=== PATIENT | female | born 1960 | race Caucasian/White ===

== ENCOUNTER 2017-07-23 14:04 | Emergency (ER) | payer OTHER ==
[2016-06-12 11:43] VITALS: Ht 154.9 cm; Wt 45.4 kg
[~2017-07-23] VITALS: Ht 154.9 cm; Wt 45.4 kg
[~2017-07-23 14:04] MED LIST: ADVAIR INHALER IH; ALB6.7R INH; ALP5 PO; AZIT-1 PO; CHOL200022 PO; ESC10 PO; GAB300 PO; IBU800 PO; IBUP-1618 PO; LEV15R INH; MET800 PO; MIRT-17 PO; MULT1TAB64 PO; OMEG-23 PO; PER PO; PRED20TA6 PO; PRO25 PO; TIO18R INH; TRA50 PO; VENL75CA58 PO
[2017-07-23] MEDS ORDERED: TIO18R INH (14:11)
[2017-07-23] MEDS ORDERED: TIOT4MIS2 PO (14:11)
--- NOTE | 2017-07-23 14:11 | ER Report ---
History and Physical Time Seen By MD: 14:11 HPI/ROS CHIEF COMPLAINT: Right rib pain HISTORY OF PRESENT ILLNESS: This is a 56-year-old female who presents to the emergency department for right rib pain. Patient states that she has been sick with a cough for about 2 weeks and has developed some right sided rib pain. Patient states that over the last 3 days the pain has increased on the right side now she feels like something is sliding on the ribs and she feels like there is a popping sound coming from the right ribs. She also states that it's been harder for her to breathe and as such she's been using her oxygen more at night and has been more short of breath. She has had aches and chills but that is improving. Patient denies headaches, chest pain, rashes, abdominal pain or dysuria. REVIEW OF SYSTEMS: Constitutional: No fever, no chills. Eyes: No discharge. ENT: No sore throat. Cardiovascular: No chest pain, no palpitations. Respiratory: As above. Gastrointestinal: No abdominal pain, no vomiting. Genitourinary: No hematuria. Musculoskeletal: As above. Skin: No rashes. Neurological: No headache. Allergies: Coded Allergies: iodine (Unverified Allergy, Intermediate, HIVES,, 07/23/17) morphine (Unverified Allergy, Mild, ITCHING, 07/23/17) Uncoded Allergies: SEAFOOD (Allergy, Mild, 06/27/07) TAPE (Adverse Reaction, Mild, IRRITATES SKIN, 07/27/09) Home Meds Active Scripts Cyclobenzaprine Hcl (CYCLOBENZAPRINE HCL) 10 Mg Tablet, 5-10 MG PO TID Y for MUSCLE SPASMS, #9 TAB Prov:IRVIN ALMANZA [facility] 07/23/17 Benzonatate 100 Mg Cap (TESSALON PERLE 100 MG CAP) 100 Mg Capsule, 100 MG PO TID Y for COUGH, #15 CAP Prov:IRVIN ALMANZA [facility] 07/23/17 Hydrocodone Bit/Acetaminophen (HYDROCODON-ACETAMINOPHEN 5-325) 1 Each Tablet, 1 EACH PO Q4-6H Y for PAIN, #10 TAB Prov:IRVIN ALMANZA [facility] 07/23/17 Reported Medications Lisdexamfetamine Dimesylate (VYVANSE) 40 Mg Capsule, 40 MG PO QDAY, CAPSULE 07/23/17 Citalopram Hydrobromide (CITALOPRAM HBR) 20 Mg Tablet, 20 MG PO QDAY, #5 TAB 07/23/17 Tiotropium Leeper (Spiriva Respimat) 4 Gm Mist.inhal, 1 PUFF PO QDAY 07/23/17 Albuterol Sulfate (Proventil Hfa) 6.7 Gm Aer.w.adap, 1 PUFF INH PRN, 0 Refills 04/22/11 Discontinued Reported Medications Tiotropium Leeper (SPIRIVA) 18 Mcg/Cap Inh, 18 MCG INH, INH 07/23/17 Multivitamin (MULTI VITAMIN DAILY) 1 Each Tablet, 1 EACH PO QDAY 06/14/16 Cholecalciferol (Vitamin D3) (Vitamin D-3) 2,000 Unit Tablet, 1000 UNITS PO QDAY 06/14/16 Mirtazapine (REMERON) 15 Mg Tab.rapdis, 7.5-15 MG PO QHS TAKE ONE HALF TO ONE TABLET ABOUT AN HOUR BEFORE YOU INTEND TO GO TO SLEEP. 06/14/16 Gerlaw-3 Fatty Acids/Fish Oil (FISH OIL 1,000 MG SOFTGEL) 1 Each Capsule, 1 EACH PO QDAY, CAPSULE 06/14/16 Venlafaxine Hcl (EFFEXOR XR) 75 Mg Cap.er.24h, 75 MG PO QDAY 06/14/16 Past Medical/Surgical History Patient has a past medical and surgical history of post menopause, suicide attempt, depression, COPD, smokes 1 pack a day still, uses oxygen at night, migraines, hypertension, asthma, emphysema, arthritis, hysterectomy, , rotator cuff repair. Reviewed Nurses Notes: Yes Hx Smoking: Yes Smoking Status: Heavy Tobacco Smoker Exposure to Second Hand Smoke?: Yes Hx Substance Use Disorder: No Hx Alcohol Use: Yes Constitutional Vital Sign - Last 24 Hours 07/23/17 07/23/17 07/23/17 07/23/17 14:09 14:13 15:00 15:04 Temp 98.0 Pulse 89 82 Resp 14 B/P (MAP) 142/79 (100) 142/79 135/96 (109) Pulse Ox 91 85 O2 Delivery Room Air 2/12/18 2/12/18 2/12/18 2/12/18 15:30 15:34 16:00 16:05 Pulse 79 80 B/P (MAP) 123/88 (100) 117/81 (93) Pulse Ox 98 97 07/23/17 07/23/17 07/23/17 16:10 16:15 16:20 Pulse 80 76 77 B/P (MAP) 133/85 (101) Pulse Ox 99 98 98 Physical Exam General Appearance: The patient is alert, has no immediate need for airway protection and no signs of toxicity, guarding right ribs. Eyes: Pupils equal and round no pallor or injection. ENT, Mouth: Mucous membranes are moist. Respiratory: There are no retractions, Rhonchi to left lower base, expiratory wheezing in upper lobes. Slightly diminished in right lower lobe. Cardiovascular: Regular rate and rhythm, no murmurs, clicks or rubs. Gastrointestinal: Abdomen is soft and non tender, no masses, bowel sounds normal. Neurological: Alert and oriented 4. Moving all activities. Following all commands. No focal neuro deficits. Skin: Warm and dry, no rashes. Musculoskeletal: Neck is supple non tender. Pain to right ribs along the costal margin. Extremities are nontender, nonswollen and have full range of motion. DIFFERENTIAL DIAGNOSIS: After history and physical exam differential diagnosis was considered for contusion, rib fracture, rib dislocation, pneumothorax, bronchitis, pneumonia. Medical Decision Making EKG/Imaging Imaging Location[place] [facility] [place] Patient: Brunilda Guardado : 1960 Visit/Account:[id number] Date of : 07/23/2017 RIBS RIGHT INDICATION: Right rib pain for 2 weeks.. COMPARISON: None Available. FINDINGS: 2 views of right ribs. BB boyer the area of concern in lower ribs. No indication of discrete or displaced rib fractures. No bony lesions. The remaining bony and soft tissues are unremarkable.. IMPRESSION: No acute osseous abnormality of the right ribs. Report Dictated By: Vinicius Can at 07/23/2017 3:07 PM Report E-Signed By: Vinicius Can at 07/23/2017 3:09 PM WSN:[id number] [place] [facility] [place] Patient: Brunilda Guardado : 1960 Visit/Account:[id number] Date of : 07/23/2017 RIBS RIGHT INDICATION: Right rib pain for 2 weeks.. COMPARISON: None Available. FINDINGS: 2 views of right ribs. BB boyer the area of concern in lower ribs. No indication of discrete or displaced rib fractures. No bony lesions. The remaining bony and soft tissues are unremarkable.. IMPRESSION: No acute osseous abnormality of the right ribs. Report Dictated By: Vinicius Can at 07/23/2017 3:07 PM Report E-Signed By: Vinicius Can at 07/23/2017 3:09 PM WSN:[id number] ED Course/Re-evaluation ED Course The patient was admitted room. A history of physical were obtained. Differential diagnoses were considered. A two-view chest x-ray and right rib x- ray were negative for any acute abnormalities. He did review these results with the patient's and I did tell her that she likely has some muscle strain related to the coughing and will treat her muscular pain and rib pain with some Cyclobenzaprine as well as [place] and have her follow-up with her primary care provider this week for reevaluation. Patient was also encouraged to return to the emergency department for any other concerns or worsening symptoms. The patient was okay with this plan of care. Decision to Disposition Date: Jul 23, 2017 Decision to Disposition Time: 16:09 Depart Departure Latest Vital Signs Vital Signs Date Time Temp Pulse Resp B/P (MAP) Pulse Ox O2 Delivery O2 Flow Rate FiO2 07/23/17 16:20 77 133/85 (101) 98 07/23/17 14:13 98.0 14 Room Air Impression: Primary Impression: Rib pain on right side Additional Impressions: Cough COPD (chronic obstructive pulmonary disease) Condition: Improved Disposition: HOME OR SELF-CARE Referrals: SRINI SOTO Cyclobenzaprine Hcl (CYCLOBENZAPRINE HCL) 10 Mg Tablet 5-10 MG PO TID Y for MUSCLE SPASMS, #9 TAB Prov: IRVIN ALMANZA [employer] 07/23/17 Benzonatate 100 Mg Cap (TESSALON PERLE 100 MG CAP) 100 Mg Capsule 100 MG PO TID Y for COUGH, #15 CAP Prov: IRVIN ALMANZA [employer] 07/23/17 Hydrocodone Bit/Acetaminophen (HYDROCODON-ACETAMINOPHEN 5-325) 1 Each Tablet 1 EACH PO Q4-6H Y for PAIN, #10 TAB Prov: IRVIN ALMANZA 07/23/17 Patient Instructions: Acute Cough (ED), Chronic Cough (ED), How to Stop Smoking (ED), Rib Contusion (ED) Additional Instructions: Drink plenty of water. Get plenty of rest. Be sure to splint your ribs for comfort. Take the prescribed medications as directed. Follow up with Dr. Soto in 3-5 days. May return to the ED for worsening symptoms. Problem Qualifiers Additional Impressions: COPD (chronic obstructive pulmonary disease) COPD type: unspecified COPD Qualified Codes: J44.9 - Chronic obstructive pulmonary disease, unspecified IRVIN ALMANZA Jul 23, 2017 14:11
[2017-07-23] MEDS ORDERED: CITA-139 PO (14:12)
[2017-07-23] MEDS ORDERED: LISD40PT PO (14:13)
--- NOTE | 2017-07-23 15:11 | RADIOLOGY IMAGING REPORT ---
FACILITY: [facility] - [place] PATIENT NAME: Brunilda Guardado : 1960 MR: [id number] V: [id number] EXAM DATE: ORDERING PHYSICIAN: IRVIN ALMANZA TECHNOLOGIST: Location: [facility] Patient: Brunilda Guardado : 1960 Visit/Account:[id number] Date of Sevice: 07/23/2017 2 VIEWS CHEST INDICATION: Cough and shortness of breath. Right rib pain. COMPARISON: 04/26/2016. FINDINGS: Cardiomediastinal silhouette and pulmonary vessels within normal limits. There is continued hyperexpansion the lungs without focal consolidation. There is no pneumothorax or pleural effusion. Mild stable postinflammatory changes in the apices. No discrete nodule. Upper abdomen is unremarkable. No acute bony abnormality. IMPRESSION: 1. Stable chest without acute cardiopulmonary disease. Report Dictated By: Vinicius Can at 07/23/2017 3:04 PM Report E-Signed By: Vinicius Can at 07/23/2017 3:07 PM WSN:[id number]
--- NOTE | 2017-07-23 15:12 | RADIOLOGY IMAGING REPORT ---
FACILITY: [facility] - [place] PATIENT NAME: Brunilda Guardado : 1960 MR: [id number] V: [id number] EXAM DATE: ORDERING PHYSICIAN: IRVIN ALMANZA TECHNOLOGIST: Location: [facility] Patient: Brunilda Guardado : 1960 Visit/Account:[id number] Date of Sevice: 07/23/2017 RIBS RIGHT INDICATION: Right rib pain for 2 weeks.. COMPARISON: None Available. FINDINGS: 2 views of right ribs. BB boyer the area of concern in lower ribs. No indication of discret e or displaced rib fractures. No bony lesions. The remaining bony and soft tissues are unremarkable.. IMPRESSION: No acute osseous abnormality of the right ribs. Report Dictated By: Vinicius Can at 07/23/2017 3:07 PM Report E-Signed By: Vinicius Can at 07/23/2017 3:09 PM WSN:[id number]
[2017-07-23] MEDS ORDERED: CYCL10TA29 PO (16:13)
[2017-07-23] MEDS ORDERED: HYDR-385 PO (16:13)
[2017-07-23] MEDS ORDERED: BENZ100C4 PO (16:13)
[2017-07-23 16:20] VITALS: BP 133/85
== END 2017-07-23 16:21 | disposition home or self-care (01) ==
LOC: ER 14:13
DX: R07.81 Pleurodynia (principal); J44.9 Chronic obstructive pulmonary disease, unspecified
CPT/HCPCS: 71046; 71100; 99283

== ENCOUNTER 2018-05-05 17:50 | Emergency (ER) | payer OTHER ==
[2016-06-12 11:43] VITALS: BMI 16.5
[~2018-05-05 17:50] MED LIST changes: +BENZ100C4 PO; -CHOL200022 PO; +CHOL200085 PO; +CITA-145 PO; +CYCL10TA29 PO; +HYDR-385 PO; +LISD40PT PO; +TIOT4MIS2 PO
--- NOTE | 2018-05-05 18:02 | ER Report ---
History and Physical Time Seen By MD: 18:02 HPI/ROS CHIEF COMPLAINT: Difficulty breathing HISTORY OF PRESENT ILLNESS: 57-year-old female presents ambulatory to the ER complaining of severe difficulty breathing for the last 24 hours. She has a history of COPD is O2 dependent at home. She notes productive cough of colored sputum with low-grade fevers. She is having severe congestion in her lungs and chest. She has rhonchorous respirations. Patient denies chest pain or leg swelling. REVIEW OF SYSTEMS: Respiratory: As above Cardiovascular: No chest pain, no palpitations. Gastrointestinal: No vomiting, no abdominal pain. Musculoskeletal: No back pain. Allergies: Coded Allergies: iodine (Unverified Allergy, Intermediate, HIVES,, 07/23/17) morphine (Unverified Allergy, Mild, ITCHING, 07/23/17) Uncoded Allergies: SEAFOOD (Allergy, Mild, 06/27/07) TAPE (Adverse Reaction, Mild, IRRITATES SKIN, 07/27/09) Home Meds Active Scripts Prednisone (PREDNISONE) 20 Mg Tablet, 40 MG PO QDAY for reduce lung inflammation for 7 Days Prov:JANEL STACK DO 05/05/18 Albuterol Sulfate 0.083% (ALBUTEROL SULFATE 0.083%) 2.5 Mg/3 Ml Vial.neb, 2.5 MG INH QID PRN for difficulty breathing, #25 INH Prov:JANEL STACK DO 05/05/18 Levofloxacin 500 Mg Tab (LEVAQUIN 500 MG TAB) 500 Mg Tablet, 500 MG PO DAILY for infection, #6 TAB Prov:JANEL STACK DO 05/05/18 Cyclobenzaprine Hcl (CYCLOBENZAPRINE HCL) 10 Mg Tablet, 5-10 MG PO TID PRN for MUSCLE SPASMS, #9 TAB Prov:IRVIN ALMANZA PUBLIC OPINION SURVEY TAKER-BC 07/23/17 Benzonatate 100 Mg Cap (TESSALON PERLE 100 MG CAP) 100 Mg Capsule, 100 MG PO TID PRN for COUGH, #15 CAP Prov:IRVIN ALMANZA PUBLIC OPINION SURVEY TAKER-BC 07/23/17 Hydrocodone Bit/Acetaminophen (HYDROCODON-ACETAMINOPHEN 5-325) 1 Each Tablet, 1 EACH PO Q4-6H PRN for PAIN, #10 TAB Prov:IRVIN ALMANZA PUBLIC OPINION SURVEY TAKER-BC 07/23/17 Reported Medications Lisdexamfetamine Dimesylate (VYVANSE) 40 Mg Capsule, 40 MG PO QDAY, CAPSULE 07/23/17 Citalopram Hydrobromide (CITALOPRAM HBR) 20 Mg Tablet, 20 MG PO QDAY, #5 TAB 07/23/17 Tiotropium [place] 2.5 MCG/ACT (Spiriva Respimat 2.5 MCG/ACT) 4 Gm Mist.inhal, 1 PUFF PO QDAY 07/23/17 Albuterol Sulfate (Proventil Hfa) 6.7 Gm Aer.w.adap, 1 PUFF INH PRN, 0 Refills 04/22/11 Past Medical/Surgical History Patient has a past medical and surgical history of post menopause, suicide attempt, depression, COPD, smokes 1 pack a day still, uses oxygen at night, migraines, hypertension, asthma, emphysema, arthritis, hysterectomy, , rotator cuff repair. Reviewed Nurses Notes: Yes Old Medical Records Reviewed: Yes Hx Smoking: Yes Smoking Status: Heavy Tobacco Smoker Exposure to Second Hand Smoke?: Yes Hx Substance Use Disorder: No Hx Alcohol Use: Yes Constitutional Vital Sign - Last 24 Hours 05/05/18 05/05/18 05/05/18 05/05/18 18:00 18:00 18:00 18:05 Temp 99.0 Pulse 118 ??? Resp 24 B/P (MAP) 127/71 (89) 127/68 Pulse Ox 80 100 O2 Delivery Room Air O2 Flow Rate 15.0 05/05/18 05/05/18 05/05/18 05/05/18 18:20 18:29 18:30 19:07 Pulse 124 127 134 Resp 38 26 B/P (MAP) 126/119 (121) Pulse Ox 99 05/05/18 05/05/18 05/05/18 05/05/18 19:20 19:30 19:35 19:40 Pulse 137 137 136 Resp 30 40 B/P (MAP) 103/58 (73) Pulse Ox 95 94 94 05/05/18 05/05/18 05/05/18 05/05/18 19:55 20:00 20:10 20:25 Pulse ??? 126 121 Resp 40 19 B/P (MAP) 97/58 (71) Pulse Ox 95 91 11/25/18 05/05/18 05/05/18 05/05/18 20:30 20:43 20:48 21:00 Pulse 112 Resp 28 B/P (MAP) 90/67 (75) 93/68 (76) 93/60 (71) Pulse Ox 89 05/05/18 05/05/18 05/05/18 05/05/18 21:03 21:18 21:30 21:33 Pulse 109 104 103 Resp 24 28 23 B/P (MAP) 90/55 (67) Pulse Ox 91 91 93 Physical Exam Hypoxic on room air in the low 80s, vital signs stable, tachypneic him, afebrile General Appearance: The patient is alert, has no immediate need for airway protection and no current signs of toxicity. Moderate respiratory distress with air hunger and increased work of breathing HEENT: Pupils equal and round no injection. TMs normal, oropharynx without redness or exudate, mucous. Membranes are moist Respiratory: Chest is non tender, decreased lung sounds throughout, faint expiratory wheezing and rhonchi in the right lung field Cardiac: regular rate and rhythm Gastrointestinal: Abdomen is soft and non tender, no masses, bowel sounds normal. Musculoskeletal: Neck: Neck is supple and non tender. No lymphadenopathy Extremities have full range of motion and are non tender. No edema, no calf tenderness Skin: No rashes or lesions. [ ] DIFFERENTIAL DIAGNOSIS: After history and physical exam differential diagnosis was considered for shortness of breath including but not limited to pulmonary infectious process, COPD, asthma, pulmonary embolus and congestive heart failure. Medical Decision Making Data Points Result Diagram: 05/05/187 05/05/187 Laboratory Hematology Test 05/05/18 18:37 Red Blood Count 4.33 M/uL (4.17-5.56) Mean Corpuscular Volume 100.6 fL (80.0-96.0) Mean Corpuscular Hemoglobin 34.4 pg (26.0-33.0) Mean Corpuscular Hemoglobin Concent 34.2 g/dL (32.0-36.0) Red Cell Distribution Width 12.9 % (11.5-14.5) Mean Platelet Volume 8.6 fL (7.2-11.1) Neutrophils (%) (Auto) % (39.4-72.5) Lymphocytes (%) (Auto) % (17.6-49.6) Monocytes (%) (Auto) % (4.1-12.4) Eosinophils (%) (Auto) % (0.4-6.7) Basophils (%) (Auto) % (0.3-1.4) Nucleated RBC Relative Count (auto) /100WBC Neutrophils # (Auto) K/uL (2.0-7.4) Lymphocytes # (Auto) K/uL (1.3-3.6) Monocytes # (Auto) K/uL (0.3-1.0) Eosinophils # (Auto) K/uL (0.0-0.5) Basophils # (Auto) K/uL (0.0-0.1) Nucleated RBC Absolute Count (auto) K/uL Neutrophils % (Manual) 77 % (39.4-72.5) Band Neutrophils % 8 % Lymphocytes % (Manual) 3 % (17.6-49.6) Atypical Lymphocytes % 1 % Monocytes % (Manual) 9 % (4.1-12.4) Eosinophils % (Manual) 0 % (0.4-6.7) Basophils % (Manual) 0 % (0.3-1.4) Metamyelocytes % 2 % Peripheral Blood Smear Yes Y/N D-Dimer Quantitative (PE/DVT) 0.76 ug/ml (0-0.50) Sodium Level 132 mmol/L (137-145) Potassium Level 4.0 mmol/L (3.5-5.0) Chloride Level 98 mmol/L (98-107) Carbon Dioxide Level 27 mmol/L (22-31) Blood Urea Nitrogen 13 mg/dl (7-18) Creatinine 0.80 mg/dl (0.52-1.04) Glomerular Filtration Rate Calc > 60.0 Random Glucose 101 mg/dl (75-110) Lactate 2.0 mmol/L (0.7-2.1) Calcium Level 9.5 mg/dl (8.4-10.2) Total Bilirubin 0.9 mg/dl (0.2-1.3) Aspartate Amino Transf (AST/SGOT) 28 U/L (0-35) Alanine Aminotransferase (ALT/SGPT) 26 U/L (0-56) Alkaline Phosphatase 69 U/L (0-126) Troponin I < 0.012 ng/ml B-Type Natriuretic Peptide 65 pg/ml (0-100) Total Protein 6.7 g/dl (6.3-8.2) Albumin 3.4 g/dl (3.5-5.0) Chemistry Test 05/05/18 18:37 White Blood Count 17.8 k/uL (4.5-11.0) Red Blood Count 4.33 M/uL (4.17-5.56) Hemoglobin 14.9 g/dL (12.0-16.0) Hematocrit 43.5 % (34.0-47.0) Mean Corpuscular Volume 100.6 fL (80.0-96.0) Mean Corpuscular Hemoglobin 34.4 pg (26.0-33.0) Mean Corpuscular Hemoglobin Concent 34.2 g/dL (32.0-36.0) Red Cell Distribution Width 12.9 % (11.5-14.5) Platelet Count 161 K/uL (150-450) Mean Platelet Volume 8.6 fL (7.2-11.1) Neutrophils (%) (Auto) % (39.4-72.5) Lymphocytes (%) (Auto) % (17.6-49.6) Monocytes (%) (Auto) % (4.1-12.4) Eosinophils (%) (Auto) % (0.4-6.7) Basophils (%) (Auto) % (0.3-1.4) Nucleated RBC Relative Count (auto) /100WBC Neutrophils # (Auto) K/uL (2.0-7.4) Lymphocytes # (Auto) K/uL (1.3-3.6) Monocytes # (Auto) K/uL (0.3-1.0) Eosinophils # (Auto) K/uL (0.0-0.5) Basophils # (Auto) K/uL (0.0-0.1) Nucleated RBC Absolute Count (auto) K/uL Neutrophils % (Manual) 77 % (39.4-72.5) Band Neutrophils % 8 % Lymphocytes % (Manual) 3 % (17.6-49.6) Atypical Lymphocytes % 1 % Monocytes % (Manual) 9 % (4.1-12.4) Eosinophils % (Manual) 0 % (0.4-6.7) Basophils % (Manual) 0 % (0.3-1.4) Metamyelocytes % 2 % Peripheral Blood Smear Yes Y/N D-Dimer Quantitative (PE/DVT) 0.76 ug/ml (0-0.50) Glomerular Filtration Rate Calc > 60.0 Lactate 2.0 mmol/L (0.7-2.1) Calcium Level 9.5 mg/dl (8.4-10.2) Total Bilirubin 0.9 mg/dl (0.2-1.3) Aspartate Amino Transf (AST/SGOT) 28 U/L (0-35) Alanine Aminotransferase (ALT/SGPT) 26 U/L (0-56) Alkaline Phosphatase 69 U/L (0-126) Troponin I < 0.012 ng/ml B-Type Natriuretic Peptide 65 pg/ml (0-100) Total Protein 6.7 g/dl (6.3-8.2) Albumin 3.4 g/dl (3.5-5.0) Coagulation Test 05/05/18 18:37 D-Dimer Quantitative (PE/DVT) 0.76 ug/ml EKG/Imaging EKG Interpretation 12 lead EK Rhythm: Sinus tachycardia, rate 123 bpm [place]: normal QRS: Pulmonary disease pattern noted biatrial enlargement, left anterior fascicular block noted ST segments: Diffuse nonspecific ST and T-wave abnormalities Imaging Results: CT scan of the CTA pulmonary angiogram was obtained. The results of the study are CT angiogram chest with contrast Indication: Cough and dyspnea. Comparison: None available. Technique: Axial CT images are obtained through the chest after administration of 75 mL Isovue 370 IV contrast. Reformatted coronal and sagittal images were reviewed as well as coronal MIP images. One of the following dose optimization techniques was utilized in the performance of this exam: automated exposure control; adjustment of the mA and/or kV according to the patient's size; or use of an iterative reconstruction technique. Specific details can be referenced in the facility's radiology CT exam operational policy. FINDINGS: No evidence of filling defect within the pulmonary vasculature to suggest pulmonary embolus. Heart is normal size without pericardial effusion. Aorta shows no aneurysm or dissection. Right hilar region does show prominent lymph node measuring 1.6 x 1.3 cm. Couple small lymph nodes in the mediastinum. No abnormal density seen mediastinum. Early consolidation seen in the inferior lateral right upper lobe. Lungs show no other consolidations, pleural effusion or pneumothorax. Mild emphysematous changes. There is a pleural-based 4 x 3 mm nodule seen in the right lower lobe on image #68 of series 14. The left lower lobe does show a pleural-based 6 x 4 mm nodule on image #80. No other discrete nodules. No other focal osseous opacities. Airways are clear. Bony structures show no acute fractures or discrete lesions. Chest wall shows no enlarged axillary lymph nodes or masses. Minimal intrahepatic biliary dilatation is partially imaged. No other focal liver abnormality. Prominent left adrenal gland measuring 2.1 x 1.3 cm. The remaining upper abdomen is unremarkable IMPRESSION: 1. No evidence of pulmonary embolus. 2. Early consolidation/pneumonia of the inferior lateral right upper lobe. Prominent right hilar lymph nodes likely reactive. 3. Bilateral lung nodule. Largest on left side measuring 6 mm. These are nonspecific and could be postinflammatory. However suggest follow-up per Fleischner guidelines described below. 4. Liver and left adrenal gland findings described above on the partially image d. Suggest a follow-up CT scan of the abdomen without and with contrast for reevaluation. FLEISCHNER SOCIETY FOLLOW-UP GUIDELINES FOR NEWLY DETECTED INCIDENTAL NODULES IN PERSONS 35 YEARS OF AGE OR OLDER. *THESE RECOMMENDATIONS DO NOT APPLY TO LUNG CANCER SCREENING, PATIENTS WITH IMMUNOSUPPRESSION , OR PATIENTS WITH KNOWN PRIMARY MALIGNANCY. MULTIPLE SOLID NODULES If largest nodule size is less than 6 mm: Low risk patient - no follow up needed High risk patient - Optional CT at 12 months. If largest nodule size is 6-8 mm: Low risk patient - follow up CT at 3-6 months, then consider CT at 18-24 months if no change. High risk patient - follow up CT at 3-6 months, then CT at 18-24 months if no change. If largest nodule size is greater than 8 mm: Low risk patient - follow up CT at 3-6 months, then consider CT at 18-24 months High risk patient - follow up CT at 3-6 months, then at 18-24 months LOW RISK PATIENT: Minimal or absent history of tobacco use and of other known risk factors. HIGH RISK PATIENT: Tobacco use, family history of lung cancer, upper pulmonary lobe location of nodule, presence of emphysema, pulmonary fibrosis, older age. The study was read by the radiologist. I viewed the images myself on the PACS system. ED Course/Re-evaluation Clinical Indication for ER IV: Hydration, IV Access ED Course Patient was admitted to an examination room. H&P was done. The differential diagnosis was considered. On clinical examination. Patient has gross hypoxemia. She is on oxygen. She is requiring O2 [id number]. She wears O2 only at night. 2 L. She does have COPD. She's had a cough and fever for 2 days. Patient's diagnostic evaluation shows an elevated white blood cell count with a left shift. Her lungs are rhonchorous and wheezing. She responds to an hour-long nebulizer treatment with 10 mg of albuterol and ipratropium. She's given some Medrol 125 mg IV. Her d-dimer is elevated. Her chest x-rays canceled. A CTA pulmonary angiogram is performed which shows no evidence of pulmonary embolism but significant consolidation of the right middle lobe consistent with pneumonia. Patient was offered admission for treatment of her pneumonia, but she doesn't really like to go home. She is very resistant to being admitted. Her oxygenation is improved. She's only requiring 2 L for her saturations to be maintained in the normal range. Patient's given Rocephin 2 g IV and Levaquin 500 mg by mouth. She's discharged on Levaquin and prednisone 40 mg per day. She is advised to follow-up with her primary care if unimproved in 2-3 days. She is cautioned of a low threshold return to the ER for any worsening. Patient was given a copy of her CT purported advised to follow-up with her primary care physician for further evaluation of her pulmonary nodules. Decision to Disposition Date: May 05, 2018 Decision to Disposition Time: 18:46 Depart Departure Latest Vital Signs Vital Signs Date Time Temp Pulse Resp B/P (MAP) Pulse Ox O2 Delivery O2 Flow Rate FiO2 05/05/18 21:33 103 23 93 05/05/18 21:30 90/55 (67) 05/05/18 18:00 99.0 Room Air 05/05/18 18:00 15.0 Impression: Primary Impression: Right upper lobe pneumonia Additional Impressions: COPD exacerbation Incidental pulmonary nodule Condition: Improved Disposition: HOME OR SELF-CARE Referrals: SRINI SOTO DO (PCP) New Scripts Prednisone (PREDNISONE) 20 Mg Tablet 40 MG PO QDAY for reduce lung inflammation for 7 Days Prov: JANEL STACK DO 05/05/18 Albuterol Sulfate 0.083% (ALBUTEROL SULFATE 0.083%) 2.5 Mg/3 Ml Vial.neb 2.5 MG INH QID PRN for difficulty breathing, #25 INH Prov: JANEL STACK DO 05/05/18 Levofloxacin 500 Mg Tab (LEVAQUIN 500 MG TAB) 500 Mg Tablet 500 MG PO DAILY for infection, #6 TAB Prov: JANEL STACK DO 05/05/18 Patient Instructions: Bacterial Pneumonia (ED), COPD (Chronic Obstructive Pulmonary Disease) (ED) Additional Instructions: Take medications as prescribed Follow-up with primary care if unimproved in 3-5 days Return to the ER for any worsening Problem Qualifiers Primary Impression: Right upper lobe pneumonia Pneumonia type: due to unspecified organism Qualified Codes: J18.1 - Lobar pneumonia, unspecified organism JANEL STACK DO May 05, 2018 18:02
[2018-05-05] MEDS ORDERED: ALBUTEROL/IPRATROPIUM 3 ML NEB NEB ONE ×2 (18:20→21:10)
[2018-05-05] MEDS ORDERED: methylPREDNIS SUCC 125 MG/2ML IVP ONE (18:20)
[2018-05-05] MEDS: ALBUTEROL 2.5 MG/3 ML NEB NEB SCH ×2 (18:27→18:28)
--- NOTE | 2018-05-05 18:32 | EKG ---
FACILITY: [facility] PATIENT NAME: PAWEL CRUMP : [id number] MR: [id number] V: [id number] EXAM DATE: ORDERING PHYSICIAN: JANEL STACK TECHNOLOGIST: CORTEZ Test Reason : CP Blood Pressure : / mmHG Vent. Rate : 123 BPM Atrial Rate : 123 BPM P-R Int : 112 ms QRS Dur : 074 ms QT Int : 282 ms P-R-T Axes : 080 -45 055 degrees QTc Int : 403 ms Sinus tachycardia Biatrial enlargement Pulmonary disease pattern Poor R wave progression anteriorly Diffuse artifact - repeat if needed Abnormal ECG No previous ECGs available Confirmed by STEVO RIVERA ([id number]) on 05/06/2018 6:18:07 AM Referred By: SEDA Confirmed By:STEVO RIVERA
[2018-05-05 18:50] LABS: PLATELET COUNT, AUTOMATED 161 K/uL (150-450)
[2018-05-05] MEDS ORDERED: NS(*) 0.9% 1000 ML BAG 1,000 ML IV ONE (18:50)
[2018-05-05] MEDS ORDERED: fentaNYL CITR 100 MCG/2 ML AMP IVP ONE (19:15)
[2018-05-05] MEDS ORDERED: ONDANSETRON 4 MG/2 ML VIAL IVP ONE (19:15)
[2018-05-05] MEDS ORDERED: IOPAMIDOL 76% 75 ML INFUS BTL 75 ML ONE (19:40)
[2018-05-05] MEDS ORDERED: NS(*) 0.9% 50 ML BAG 50 ML ONE (19:41)
--- NOTE | 2018-05-05 20:54 | RADIOLOGY IMAGING REPORT ---
FACILITY: [facility] [place] PATIENT NAME: Brunilda Guardado : 1960 MR: [id number] V: [id number] EXAM DATE: ORDERING PHYSICIAN: JANEL STACK TECHNOLOGIST: Location: [facility] [place] Patient: Brunilda Guardado : 1960 Visit/Account:[id number] Date of Sevice: 05/05/2018 CT angiogram chest with contrast Indication: Cough and dyspnea. Comparison: None available. Technique: Axial CT images are obtained through the chest after administration of 75 mL Isovue 370 IV contrast. Reformatted coronal and sagittal images were reviewed as well as coronal MIP images. One of the following dose optimization techniques was utilized in the performance of this exam: auto mated exposure control; adjustment of the mA and/or kV according to the patient's size; or use of an iterative reconstruction technique. Specific details can be referenced in the facility's radiology C T exam operational policy. FINDINGS: No evidence of filling defect within the pulmonary vasculature to suggest pulmonary embolus. Heart is normal size without pericardial effusion. Aorta shows no aneurysm or dissection. Right hilar region does show prominent lymph node measuring 1.6 x 1.3 cm. Couple small lymph nodes in the medias tinum. No abnormal density seen mediastinum. Early consolidation seen in the inferior lateral right upper lobe. Lungs show no other consolidations , pleural effusion or pneumothorax. Mild emphysematous changes. There is a pleural-based 4 x 3 mm nod ule seen in the right lower lobe on image #68 of series 14. The left lower lobe does show a pleural-b ased 6 x 4 mm nodule on image #80. No other discrete nodules. No other focal osseous opacities. Airwa ys are clear. Bony structures show no acute fractures or discrete lesions. Chest wall shows no enlarged axillary ly mph nodes or masses. Minimal intrahepatic biliary dilatation is partially imaged. No other focal liver abnormality. Promin ent left adrenal gland measuring 2.1 x 1.3 cm. The remaining upper abdomen is unremarkable IMPRESSION: 1. No evidence of pulmonary embolus. 2. Early consolidation/pneumonia of the inferior lateral right upper lobe. Prominent right hilar lym ph nodes likely reactive. 3. Bilateral lung nodule. Largest on left side measuring 6 mm. These are nonspecific and could be pos tinflammatory. However suggest follow-up per Fleischner guidelines described below. 4. Liver and left adrenal gland findings described above on the partially imaged. Suggest a follow-up CT scan of the abdomen without and with contrast for reevaluation. FLEISCHNER SOCIETY FOLLOW-UP GUIDELINES FOR NEWLY DETECTED INCIDENTAL NODULES IN PERSONS 35 YEARS OF AGE OR OLDER. *THESE RECOMMENDATIONS DO NOT APPLY TO LUNG CANCER SCREENING, PATIENTS WITH IMMUNOSUPPRESSION , OR PA TIENTS WITH KNOWN PRIMARY MALIGNANCY. MULTIPLE SOLID NODULES If largest nodule size is less than 6 mm: Low risk patient - no follow up needed High risk patient - Optional CT at 12 months. If largest nodule size is 6-8 mm: Low risk patient - follow up CT at 3-6 months, then consider CT at 18-24 months if no change. High risk patient - follow up CT at 3-6 months, then CT at 18-24 months if no change. If largest nodule size is greater than 8 mm: Low risk patient - follow up CT at 3-6 months, then consider CT at 18-24 months High risk patient - follow up CT at 3-6 months, then at 18-24 months LOW RISK PATIENT: Minimal or absent history of tobacco use and of other known risk factors. HIGH RISK PATIENT: Tobacco use, family history of lung cancer, upper pulmonary lobe location of nodul e, presence of emphysema, pulmonary fibrosis, older age. Mary Ellen H, Mark DP, Ramez LUO, et al. Guidelines for Management of Incidental Pulmonary Nodules Dete cted on CT Images: From the Fleischner Society 2017. Radiology. Report Dictated By: Vinicius Can at 05/05/2018 8:36 PM Report E-Signed By: Vinicius Can at 05/05/2018 8:50 PM WSN:[id number]
[2018-05-05] MEDS ORDERED: LEVOFLOXACIN 500 MG TAB PO ONE (21:00)
[2018-05-05] MEDS ORDERED: cefTRIAXone 2 GM VIAL IVP ONE (21:00)
[2018-05-05] MEDS ORDERED: ALBU2.5V36 INH (21:27)
[2018-05-05] MEDS ORDERED: LEVO-85 PO (21:27)
[2018-05-05] MEDS ORDERED: PRED20TA6 PO (21:28)
[2018-05-05 21:30] VITALS: BP 90/55
== END 2018-05-05 21:48 | disposition home or self-care (01) ==
LOC: ER 18:05
DX: J18.1 Lobar pneumonia, unspecified organism (principal); J44.1 Chronic obstructive pulmonary disease with (acute) exacerbation; R91.1 Solitary pulmonary nodule; Z99.81 Dependence on supplemental oxygen
CPT/HCPCS: 36415; 71275; 83605; 83880; 84484; 85025; 85379; 87040; 93005; 94644; 96374; 96375; 99284; J0696; J2405; J2930; J3010; J7030; J7050; J7613; J7620; Q9967; 82040; 82247; 82310; 82374; 82435; 82565; 82947; 84075; 84132; 84155; 84295; 84450; 84460; 84520

== ENCOUNTER 2018-06-19 07:41 | Emergency (ER) | payer OTHER ==
[2016-06-12 11:43] VITALS: Wt 40.8 kg
[~2018-06-19 07:41] MED LIST changes: -OXYGENHOME INH
[2018-06-19] MEDS ORDERED: OXYGENHOME INH (07:47)
[2018-06-19] MEDS ORDERED: ASPIRIN 81 MG CHEW PO ONE (07:55)
--- NOTE | 2018-06-19 07:56 | ER Report ---
History and Physical Time Seen By MD: 07:55 Hx. of Stated Complaint: CHEST PAIN - A FIB REPORTED BY EMS WITH NO HISTORY HPI/ROS CHIEF COMPLAINT: Chest pain HISTORY OF PRESENT ILLNESS: 57-year-old female comes emergency room complaining of chest pain. Patient states left-sided dull aching with occasional episodes of chest pressures mild associated shortness of breath. Patient is a baseline history of COPD secondary to smoking her entire life. Patient is still smoking. Patient also notes a weight loss of approximately 30 pounds in the last 3-4 months. 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 Patient also is a harsh productive cough she says of deep dark phlegm. Patient denies any fever chills nausea she has no exertional dyspnea and orthopnea no PND patient has no additional complaints this time REVIEW OF SYSTEMS: Respiratory: Cough with shortness of breath Cardiovascular: Chest pain or palpitation Gastrointestinal: No vomiting, no abdominal pain. Musculoskeletal: No back pain. Remainder of the 14 system rev: Yes Allergies: Coded Allergies: iodine (Unverified Allergy, Intermediate, HIVES,, 06/19/18) morphine (Unverified Allergy, Mild, ITCHING, 06/19/18) Uncoded Allergies: SEAFOOD (Allergy, Mild, 06/27/07) TAPE (Adverse Reaction, Mild, IRRITATES SKIN, 07/27/09) Home Meds Active Scripts Albuterol Sulfate 0.083% (ALBUTEROL SULFATE 0.083%) 2.5 Mg/3 Ml Vial.neb, 2.5 MG INH QID PRN for difficulty breathing, #25 INH Prov:JANEL STACK DO 05/05/18 Reported Medications Oxygen (OXYGEN) Inha, 2 L INH HS, L 06/19/18 Tiotropium [place] 2.5 MCG/ACT (Spiriva Respimat 2.5 MCG/ACT) 4 Gm Mist.inhal, 1 PUFF PO QDAY 07/23/17 Albuterol Sulfate (Proventil Hfa) 6.7 Gm Aer.w.adap, 1 PUFF INH PRN, 0 Refills 04/22/11 Discontinued Reported Medications Lisdexamfetamine Dimesylate (VYVANSE) 40 Mg Capsule, 40 MG PO QDAY, CAPSULE 07/23/17 Citalopram Hydrobromide (CITALOPRAM HBR) 20 Mg Tablet, 20 MG PO QDAY, #5 TAB 07/23/17 Discontinued Scripts Prednisone (PREDNISONE) 20 Mg Tablet, 40 MG PO QDAY for reduce lung inflammation for 7 Days Prov:JANEL STACK DO 05/05/18 Levofloxacin 500 Mg Tab (LEVAQUIN 500 MG TAB) 500 Mg Tablet, 500 MG PO DAILY for infection, #6 TAB Prov:JANEL STACK DO 05/05/18 Cyclobenzaprine Hcl (CYCLOBENZAPRINE HCL) 10 Mg Tablet, 5-10 MG PO TID PRN for MUSCLE SPASMS, #9 TAB Prov:IRVIN ALMANZA ACCOUNT RETENTION REPRESENTATIVE-BC 07/23/17 Benzonatate 100 Mg Cap (TESSALON PERLE 100 MG CAP) 100 Mg Capsule, 100 MG PO TID PRN for COUGH, #15 CAP Prov:IRVIN ALMANZA ACCOUNT RETENTION REPRESENTATIVE-BC 07/23/17 Hydrocodone Bit/Acetaminophen (HYDROCODON-ACETAMINOPHEN 5-325) 1 Each Tablet, 1 EACH PO Q4-6H PRN for PAIN, #10 TAB Prov:IRVIN ALMANZA ACCOUNT RETENTION REPRESENTATIVE-BC 07/23/17 Reviewed Nurses Notes: Yes Old Medical Records Reviewed: Yes Hx Smoking: Yes Smoking Status: Heavy Tobacco Smoker Exposure to Second Hand Smoke?: Yes Hx Substance Use Disorder: No Hx Alcohol Use: Yes Constitutional Vital Sign - Last 24 Hours 06/19/18 06/19/18 06/19/18 06/19/18 07:42 07:43 07:46 07:50 Pulse 92 Resp 20 B/P (MAP) 138/101 138/101 (113) 141/88 (105) Pulse Ox 98 O2 Delivery Nasal Cannula O2 Flow Rate 4.0 06/19/18 06/19/18 06/19/18 06/19/18 07:52 08:00 08:10 08:40 B/P (MAP) 128/85 (99) 145/89 (107) 141/77 (98) O2 Flow Rate 2.0 06/19/18 06/19/18 06/19/18 06/19/18 08:41 08:50 09:00 09:10 Pulse 97 Resp 11 B/P (MAP) 130/70 (90) 123/84 (97) 116/87 (97) Pulse Ox 98 06/19/18 06/19/18 06/19/18 06/19/18 09:11 09:14 09:20 09:30 Pulse 84 Resp 18 B/P (MAP) 103/92 (96) 104/86 (92) Pulse Ox 97 O2 Flow Rate 1.0 Physical Exam General Appearance: [The patient is alert, has no immediate need for airway protection and no current signs of toxicity.] [ ] Eyes: Pupils equal and round no injection. Respiratory: Chest is nontender to palpation she has some mild end expiratory wheezes on the left side greater than right with some coarse crackles at bases Cardiac: regular rate and rhythm [ ] Gastrointestinal: Abdomen is soft and non tender, no masses, bowel sounds normal. Musculoskeletal: Neck: Neck is supple and non tender. Extremities have full range of motion and are non tender. Skin: No rashes or lesions. [ ] DIFFERENTIAL DIAGNOSIS: After history and physical exam differential diagnosis was considered for myocardial infarction pulmonary embolus pneumonia bronchitis rib fractures pulmonary contusion pneumothorax Medical Decision Making Data Points Result Diagram: 06/19/18 0737 06/19/18 0737 Laboratory Hematology Test 06/19/18 07:37 06/19/18 08:15 06/19/18 08:18 Red Blood Count 4.62 M/uL (4.17-5.56) Mean Corpuscular Volume 100.4 fL (80.0-96.0) Mean Corpuscular Hemoglobin 34.1 pg (26.0-33.0) Mean Corpuscular Hemoglobin Concent 33.9 g/dL (32.0-36.0) Red Cell Distribution Width 13.3 % (11.5-14.5) Mean Platelet Volume 8.2 fL (7.2-11.1) Neutrophils (%) (Auto) 69.0 % (39.4-72.5) Lymphocytes (%) (Auto) 23.1 % (17.6-49.6) Monocytes (%) (Auto) 6.1 % (4.1-12.4) Eosinophils (%) (Auto) 1.0 % (0.4-6.7) Basophils (%) (Auto) 0.8 % (0.3-1.4) Nucleated RBC Relative Count (auto) 0.0 /100WBC Neutrophils # (Auto) 4.8 K/uL (2.0-7.4) Lymphocytes # (Auto) 1.6 K/uL (1.3-3.6) Monocytes # (Auto) 0.4 K/uL (0.3-1.0) Eosinophils # (Auto) 0.1 K/uL (0.0-0.5) Basophils # (Auto) 0.1 K/uL (0.0-0.1) Nucleated RBC Absolute Count (auto) 0.00 K/uL Sodium Level 140 mmol/L (137-145) Potassium Level 4.7 mmol/L (3.5-5.0) Chloride Level 104 mmol/L (98-107) Carbon Dioxide Level 28 mmol/L (22-31) Blood Urea Nitrogen 10 mg/dl (7-18) Creatinine 0.70 mg/dl (0.52-1.04) Glomerular Filtration Rate Calc > 60.0 Random Glucose 84 mg/dl (75-110) Calcium Level 9.6 mg/dl (8.4-10.2) Total Bilirubin 0.5 mg/dl (0.2-1.3) Aspartate Amino Transf (AST/SGOT) 32 U/L (0-35) Alanine Aminotransferase (ALT/SGPT) 27 U/L (0-56) Alkaline Phosphatase 74 U/L (0-126) Troponin I < 0.012 ng/ml B-Type Natriuretic Peptide 17 pg/ml (0-100) Total Protein 7.6 g/dl (6.3-8.2) Albumin 4.2 g/dl (3.5-5.0) Serum Alcohol < 10 mg/dl Lactate 1.6 mmol/L (0.7-2.1) Blood Gas Puncture Site Left radial Blood Gas Patient Temperature 98.6 DEGREES Arterial Blood pH 7.37 (7.35-7.45) Arterial Blood Partial Pressure CO2 44 mmHg (32-37) Arterial Blood Partial Pressure O2 84 mmHg (60-80) Arterial Blood HCO3 25 mmol/L (20-26) Arterial Blood Oxygen Saturation 96 % (92-100) Arterial Blood Base Excess 0.0 mmol/L Doni Test Acceptable Oxygen Liters/Minute 28% Chemistry Test 06/19/18 07:37 06/19/18 08:15 06/19/18 08:18 White Blood Count 7.0 k/uL (4.5-11.0) Red Blood Count 4.62 M/uL (4.17-5.56) Hemoglobin 15.7 g/dL (12.0-16.0) Hematocrit 46.3 % (34.0-47.0) Mean Corpuscular Volume 100.4 fL (80.0-96.0) Mean Corpuscular Hemoglobin 34.1 pg (26.0-33.0) Mean Corpuscular Hemoglobin Concent 33.9 g/dL (32.0-36.0) Red Cell Distribution Width 13.3 % (11.5-14.5) Platelet Count 244 K/uL (150-450) Mean Platelet Volume 8.2 fL (7.2-11.1) Neutrophils (%) (Auto) 69.0 % (39.4-72.5) Lymphocytes (%) (Auto) 23.1 % (17.6-49.6) Monocytes (%) (Auto) 6.1 % (4.1-12.4) Eosinophils (%) (Auto) 1.0 % (0.4-6.7) Basophils (%) (Auto) 0.8 % (0.3-1.4) Nucleated RBC Relative Count (auto) 0.0 /100WBC Neutrophils # (Auto) 4.8 K/uL (2.0-7.4) Lymphocytes # (Auto) 1.6 K/uL (1.3-3.6) Monocytes # (Auto) 0.4 K/uL (0.3-1.0) Eosinophils # (Auto) 0.1 K/uL (0.0-0.5) Basophils # (Auto) 0.1 K/uL (0.0-0.1) Nucleated RBC Absolute Count (auto) 0.00 K/uL Glomerular Filtration Rate Calc > 60.0 Calcium Level 9.6 mg/dl (8.4-10.2) Total Bilirubin 0.5 mg/dl (0.2-1.3) Aspartate Amino Transf (AST/SGOT) 32 U/L (0-35) Alanine Aminotransferase (ALT/SGPT) 27 U/L (0-56) Alkaline Phosphatase 74 U/L (0-126) Troponin I < 0.012 ng/ml B-Type Natriuretic Peptide 17 pg/ml (0-100) Total Protein 7.6 g/dl (6.3-8.2) Albumin 4.2 g/dl (3.5-5.0) Serum Alcohol < 10 mg/dl Lactate 1.6 mmol/L (0.7-2.1) Blood Gas Puncture Site Left radial Blood Gas Patient Temperature 98.6 DEGREES Arterial Blood pH 7.37 (7.35-7.45) Arterial Blood Partial Pressure CO2 44 mmHg (32-37) Arterial Blood Partial Pressure O2 84 mmHg (60-80) Arterial Blood HCO3 25 mmol/L (20-26) Arterial Blood Oxygen Saturation 96 % (92-100) Arterial Blood Base Excess 0.0 mmol/L Doni Test Acceptable Oxygen Liters/Minute 28% Toxicology Test 06/19/18 07:37 Serum Alcohol < 10 mg/dl ED Course/Re-evaluation ED Course Equal medical course medical decision making a 57-year-old female comes emergency Department today with reported left sided chest pleuritic chest discomfort after a fall 3 days prior to. Patient also states that she's had multiple does her family both of her sons are in detention and she is having significant anxiety as well. Basic workup was performed according cardiac ma mariers EKG chest x-ray all of which showed no acute or focal findings. She CT Ponce was performed due to risk factors for PE this was also normal she does have pulmonary nodules which is been stable for the past few imaging however this is concerning for possible early cancer this was discussed with the patient. Patient did receive some fluids and antianxiety she feels significantly better she has family at bedside her blood work including ABG showed nothing focal or acute no sign of infection etiology this most likely is anxiety component however I did advise her to follow-up with a primary care doc I recommended outpatient stress and echo smoking cessation and alcohol cessation and therapy for anxiety Decision to Disposition Date: Jun 19, 2018 Decision to Disposition Time: 10:01 Depart Departure Latest Vital Signs Vital Signs Date Time Temp Pulse Resp B/P (MAP) Pulse Ox O2 Delivery O2 Flow Rate FiO2 06/19/18 09:30 104/86 (92) 06/19/18 09:14 1.0 06/19/18 09:11 84 18 97 06/19/18 07:43 Nasal Cannula Impression: Primary Impression: COPD (chronic obstructive pulmonary disease) Additional Impression: Anxiety Condition: Stable Disposition: HOME OR SELF-CARE Referrals: SRINI SOTO DO (PCP) Patient Instructions: Anxiety (DC), COPD (Chronic Obstructive Pulmonary Disease) (DC) Problem Qualifiers JING KURTZ MD Jun 19, 2018 07:56
[2018-06-19 08:01] LABS: PLATELET COUNT, AUTOMATED 244 K/uL (150-450)
[2018-06-19] MEDS ORDERED: IOPAMIDOL 76% 75 ML INFUS BTL 75 ML ONE (08:09)
[2018-06-19] MEDS ORDERED: NS(*) 0.9% 50 ML BAG 50 ML ONE (08:09)
--- NOTE | 2018-06-19 08:37 | EKG ---
FACILITY: [facility] PATIENT NAME: PAWEL CRUMP : [id number] MR: [id number] V: [id number] EXAM DATE: ORDERING PHYSICIAN: JING KURTZ TECHNOLOGIST: JEMAL Test Reason : chest pain Blood Pressure : / mmHG Vent. Rate : 094 BPM Atrial Rate : 094 BPM P-R Int : 128 ms QRS Dur : 070 ms QT Int : 374 ms P-R-T Axes : 085 089 074 degrees QTc Int : 467 ms Sinus rhythm with marked sinus arrhythmia Biatrial enlargement Abnormal ECG When compared with ECG of 05-MAY-2018 18:08, Left anterior fascicular block is no longer present ST no longer depressed in Inferior leads ST no longer depressed in Anterior leads Confirmed by SHANNAN POST ([id number]) on 06/19/2018 10:29:58 AM Referred By: JERARDO Confirmed By:SHANNAN POST
--- NOTE | 2018-06-19 08:53 | RADIOLOGY IMAGING REPORT ---
FACILITY: [facility] PATIENT NAME: Brunilda Guardado : 1960 MR: [id number] V: [id number] EXAM DATE: ORDERING PHYSICIAN: JING KURTZ TECHNOLOGIST: Location: [facility] Patient: Brunilda Guardado : 1960 Visit/Account:[id number] Date of Sevice: 06/19/2018 Exam type: CHEST PA LAT History: Chest pain x2 days, getting worse, smoker, cough Comparison: July 23, 2017. Findings: Again noted is hyperinflation of the lung multani and mild biapical pleural parenchymal scarring. The re is mild linear stranding in the right upper lobe that is new when compared to the prior study. Ca rdiac silhouette is normal in size. There appears to be a pectus excavatum deformity the anterior ch est wall IMPRESSION: Hyperinflation of the lung multani Mild linear stranding in the right upper lobe is new since the prior study may represent scarring maxwell jr atelectasis Report Dictated By: Mary Chung MD at 06/19/2018 8:44 AM Report E-Signed By: Mary Chung MD at 06/19/2018 8:46 AM WSN:[email or web address]
[2018-06-19] MEDS ORDERED: LORazepam 2 MG/ML VIAL IVP ONE (09:05)
--- NOTE | 2018-06-19 09:27 | RADIOLOGY IMAGING REPORT ---
FACILITY: [facility] PATIENT NAME: Brunilda Guardado : 1960 MR: [id number] V: [id number] EXAM DATE: ORDERING PHYSICIAN: JING KURTZ TECHNOLOGIST: [place] [facility] [place] Brunilda Guardado : 1960 Visit/Account:[id number] Date of Sevice: 06/19/2018 CT CTA CHEST W & W/O CON HISTORY: cp ADDITIONAL HISTORY: None. TECHNIQUE: CTA chest with intravenous contrast. Axial imaging acquired following administration of IV contrast timed for maximum opacification of the pulmonary arterial vasculature. Slab 3-D MIP traci nstructed images were also created for further evaluation and interpretation. Reconstruction of the [facility] data set includes multiplanar 2-D in the sagittal and coronal planes and 3-D reconstructed raj nal slab MIP series. 3-D images were created by the technologist.Dose Lowering Technique One of the following dose optimization techniques was utilized in the performance of this exam: Autom ated exposure control; adjustment of the mA and/or kV according to the patient's size; or use of an i terative reconstruction technique. Specific details can be referenced in the facility's radiology C T exam operational policy. CONTRAST: 75 mL Isovue-370 COMPARISON: The 2017 FINDINGS: Lungs/pleura: Biapical bullous disease and pleural parenchymal scarring appears similar to the prior study 4 x 3 mm pleural-based nodule posterior aspect the right lower lobe appears unchanged and is best see n on image 74 of series 8. The 6 x 4 mm pleural-based nodule lateral aspect of the left lower lobe also appears stable best seen on image 82 is a 5 x 3 mm intrafissural nodule major fissure on the left best seen on image 81 that also remains stable There is a 3 mm nodule anterolateral aspect left upper lobe that also remains stable best seen on dusty ge 37. There is an area of chronic consolidation in the inferior medial right middle lobe which may represen t scarring or chronic atelectasis. There is very mild linear stranding in the inferior right upper lobe in location of the previous infi ltrate likely representing scarring Heart/vessels: There are no filling defects identified in the pulmonary arterial tree. There are coronary artery calcifications Mediastinum/lymph nodes: Negative. Visualized upper abdomen: There is thickening of the left adrenal gland Bones/soft tissues: There is a mild pectus excavatum deformity the anterior chest wall Additional findings: None IMPRESSION: No evidence of pulmonary emboli Very mild linear stranding in the inferior right upper lobe in the location of a previous infiltrate likely represent scarring Bilateral pulmonary nodules measuring up to five mm have remained stable [employer] FOLLOW-UP GUIDELINES FOR NEWLY DETECTED INCIDENTAL NODULES IN PERSONS 35 YEARS OF AGE OR OLDER. *These recommendations do NOT apply to lung cancer screening, patients with immunosuppression or bethany ents with a known primary malignancy. MULTIPLE SOLID NODULES If nodule size is < 6 mm: * Low risk patient ? No routine follow-up. * High risk patient ? Optional CT at 12 months. If nodule size is 6-8 mm: * Low risk patient ? CT at 3-6 months, then consider CT at 18-24 months if no change. * High risk patient ? CT at 3-6 months, then CT at 18-24 months if no change. If nodule size is > 8 mm: * Low risk patient ? CT at 3-6 months, then consider CT at 18-24 months if no change. * High risk patient ? CT at 3-6 months, then consider CT at 18-24 months if no change. LOW RISK PATIENT: Minimal or absent history of tobacco use and of other known risk factors. HIGH RISK PATIENT: Tobacco use, family history of lung cancer, upper pulmonary lobe location of nodul e, presence of emphysema, pulmonary fibrosis, older age. Jasonhoalison H, Mark DP, Marcelluso JM, et al. Guidelines for Management of Incidental Pulmonary Nodules Dete cted on CT Images: From the Fleischner Society 2017. Radiology. uchnipn T ickened left adrenal gland appears similar to the prior study Report Dictated By: Mary Chung MD at 06/19/2018 9:04 AM Report E-Signed By: Mary Chung MD at 06/19/2018 9:22 AM WSN:[email or web address]
[2018-06-19 09:30] VITALS: BP 104/86
[2018-06-19] MEDS ORDERED: HYDR-385 PO (20:19)
[2018-06-19] MEDS ORDERED: PRED20TA6 PO (20:19)
== END 2018-06-19 10:07 | disposition home or self-care (01) ==
LOC: ER 07:45
DX: J44.9 Chronic obstructive pulmonary disease, unspecified (principal); F41.9 Anxiety disorder, unspecified; F17.210 Nicotine dependence, cigarettes, uncomplicated
CPT/HCPCS: 36415; 36600; 71046; 71275; 80320; 82803; 83605; 83880; 84484; 85025; 87040; 93005; 96374; 99284; J2060; J7050; Q9967; 82040; 82247; 82310; 82374; 82435; 82565; 82947; 84075; 84132; 84155; 84295; 84450; 84460; 84520

== ENCOUNTER 2018-06-19 18:46 | Emergency (ER) | payer OTHER ==
[2016-06-12 11:43] VITALS: Wt 40.4 kg
[~2018-06-19 18:46] MED LIST changes: +OXYGENHOME INH
--- NOTE | 2018-06-19 18:51 | ER Report ---
History and Physical Time Seen By MD: 18:51 HPI/ROS CHIEF COMPLAINT: Chest pain HISTORY OF PRESENT ILLNESS: 57-year-old female patient presents to emergency room with complaint of chest pain. Patient states this been going on since this morning. She states that she was seen in the emergency room earlier today and was discharged home. She states the pain has not gotten any better. States pain is on the left side of the chest around the left breast. Patient states that any type of movement seems to make the pain worse. She denies having any fevers or chills. She states that nothing seemed to help with the discomfort that she is having. Patient states she's been having a cough, but that has been pretty stable. REVIEW OF SYSTEMS: Respiratory: As noted above Cardiovascular: As noted above Gastrointestinal: No vomiting, no abdominal pain. Musculoskeletal: No back pain. Allergies: Coded Allergies: iodine (Unverified Allergy, Intermediate, HIVES,, 06/19/18) morphine (Unverified Allergy, Mild, ITCHING, 06/19/18) Uncoded Allergies: SEAFOOD (Allergy, Mild, 06/27/07) Home Meds Active Scripts Hydrocodone Bit/Acetaminophen (HYDROCODON-ACETAMINOPHEN 5-325) 1 Each Tablet, 1 EACH PO Q4-6H PRN for PAIN, #6 TAB Prov:CRIS CHAU ELECTRICITY TRADER 06/19/18 Prednisone (PREDNISONE) 20 Mg Tablet, 40 MG PO DAILY, #8 TAB Prov:CRIS CHAU ELECTRICITY TRADER 06/19/18 Albuterol Sulfate 0.083% (ALBUTEROL SULFATE 0.083%) 2.5 Mg/3 Ml Vial.neb, 2.5 MG INH QID PRN for difficulty breathing, #25 INH Prov:JANEL STACK DO 05/05/18 Reported Medications Oxygen (OXYGEN) Inha, 2 L INH HS, L 06/19/18 Tiotropium [place] 2.5 MCG/ACT (Spiriva Respimat 2.5 MCG/ACT) 4 Gm Mist.inhal, 1 PUFF PO QDAY 07/23/17 Albuterol Sulfate (Proventil Hfa) 6.7 Gm Aer.w.adap, 1 PUFF INH PRN, 0 Refills 04/22/11 Discontinued Reported Medications Lisdexamfetamine Dimesylate (VYVANSE) 40 Mg Capsule, 40 MG PO QDAY, CAPSULE 07/23/17 Citalopram Hydrobromide (CITALOPRAM HBR) 20 Mg Tablet, 20 MG PO QDAY, #5 TAB 07/23/17 Discontinued Scripts Prednisone (PREDNISONE) 20 Mg Tablet, 40 MG PO QDAY for reduce lung inflammation for 7 Days Prov:JANEL STACK DO 05/05/18 Levofloxacin 500 Mg Tab (LEVAQUIN 500 MG TAB) 500 Mg Tablet, 500 MG PO DAILY for infection, #6 TAB Prov:JANEL STACK DO 05/05/18 Cyclobenzaprine Hcl (CYCLOBENZAPRINE HCL) 10 Mg Tablet, 5-10 MG PO TID PRN for MUSCLE SPASMS, #9 TAB Prov:IRVIN ALMANZA ELECTRICITY TRADER-BC 07/23/17 Benzonatate 100 Mg Cap (TESSALON PERLE 100 MG CAP) 100 Mg Capsule, 100 MG PO TID PRN for COUGH, #15 CAP Prov:IRVIN ALMANZA ELECTRICITY TRADER-BC 07/23/17 Hydrocodone Bit/Acetaminophen (HYDROCODON-ACETAMINOPHEN 5-325) 1 Each Tablet, 1 EACH PO Q4-6H PRN for PAIN, #10 TAB Prov:IRVIN ALMANZA ELECTRICITY TRADER-BC 07/23/17 Past Medical/Surgical History Patient has a past medical history of migraines, hypertension, asthma, emphysema, COPD, arthritis, osteoporosis shoulder fracture, ankle, finger, toe fractures, depression, suicide attempt. Patient has a surgical history of appendectomy, cholecystectomy, hysterectomy, r otator cuff surgery, tumor removed from jaw. Patient has a family medical history of diabetes. Reviewed Nurses Notes: Yes Hx Smoking: Yes Smoking Status: Heavy Tobacco Smoker Exposure to Second Hand Smoke?: Yes Hx Substance Use Disorder: No Hx Alcohol Use: Yes Constitutional Vital Sign - Last 24 Hours 06/19/18 06/19/18 06/19/18 06/19/18 18:49 19:06 19:10 19:10 Pulse 92 Resp 20 Pulse Ox 97 O2 Delivery Room Air Nasal Cannula O2 Flow Rate 4.0 4.0 Physical Exam General Appearance: The patient is alert, has no immediate need for airway protection and no current signs of toxicity. Respiratory: Chest is tender, especially between ribs 4 and 5, lungs are clear to auscultation. Cardiac: regular rate and rhythm Gastrointestinal: Abdomen is soft and non tender, no masses, bowel sounds normal. Musculoskeletal: Neck: Neck is supple and non tender. Extremities have full range of motion and are non tender. Skin: No rashes or lesions. DIFFERENTIAL DIAGNOSIS: After history and physical exam differential diagnosis was considered for shortness of breath including but not limited to pulmonary infectious process, COPD, asthma, pulmonary embolus and congestive heart failure. Included in the differential is NM, costochondritis. Medical Decision Making Data Points Result Diagram: 06/19/188 06/19/188 Laboratory Hematology Test 06/19/18 18:58 Red Blood Count 4.66 M/uL (4.17-5.56) Mean Corpuscular Volume 99.1 fL (80.0-96.0) Mean Corpuscular Hemoglobin 33.8 pg (26.0-33.0) Mean Corpuscular Hemoglobin Concent 34.1 g/dL (32.0-36.0) Red Cell Distribution Width 12.9 % (11.5-14.5) Mean Platelet Volume 8.3 fL (7.2-11.1) Neutrophils (%) (Auto) 75.8 % (39.4-72.5) Lymphocytes (%) (Auto) 14.8 % (17.6-49.6) Monocytes (%) (Auto) 7.1 % (4.1-12.4) Eosinophils (%) (Auto) 2.0 % (0.4-6.7) Basophils (%) (Auto) 0.3 % (0.3-1.4) Nucleated RBC Relative Count (auto) 0.0 /100WBC Neutrophils # (Auto) 5.4 K/uL (2.0-7.4) Lymphocytes # (Auto) 1.1 K/uL (1.3-3.6) Monocytes # (Auto) 0.5 K/uL (0.3-1.0) Eosinophils # (Auto) 0.1 K/uL (0.0-0.5) Basophils # (Auto) 0.0 K/uL (0.0-0.1) Nucleated RBC Absolute Count (auto) 0.00 K/uL Sodium Level 141 mmol/L (137-145) Potassium Level 4.2 mmol/L (3.5-5.0) Chloride Level 104 mmol/L (98-107) Carbon Dioxide Level 31 mmol/L (22-31) Blood Urea Nitrogen 11 mg/dl (7-18) Creatinine 0.80 mg/dl (0.52-1.04) Glomerular Filtration Rate Calc > 60.0 Random Glucose 90 mg/dl (75-110) Calcium Level 9.9 mg/dl (8.4-10.2) Total Bilirubin 0.4 mg/dl (0.2-1.3) Aspartate Amino Transf (AST/SGOT) 34 U/L (0-35) Alanine Aminotransferase (ALT/SGPT) 20 U/L (0-56) Alkaline Phosphatase 72 U/L (0-126) Troponin I < 0.012 ng/ml Total Protein 7.3 g/dl (6.3-8.2) Albumin 4.0 g/dl (3.5-5.0) Chemistry Test 06/19/18 18:58 White Blood Count 7.2 k/uL (4.5-11.0) Red Blood Count 4.66 M/uL (4.17-5.56) Hemoglobin 15.7 g/dL (12.0-16.0) Hematocrit 46.1 % (34.0-47.0) Mean Corpuscular Volume 99.1 fL (80.0-96.0) Mean Corpuscular Hemoglobin 33.8 pg (26.0-33.0) Mean Corpuscular Hemoglobin Concent 34.1 g/dL (32.0-36.0) Red Cell Distribution Width 12.9 % (11.5-14.5) Platelet Count 259 K/uL (150-450) Mean Platelet Volume 8.3 fL (7.2-11.1) Neutrophils (%) (Auto) 75.8 % (39.4-72.5) Lymphocytes (%) (Auto) 14.8 % (17.6-49.6) Monocytes (%) (Auto) 7.1 % (4.1-12.4) Eosinophils (%) (Auto) 2.0 % (0.4-6.7) Basophils (%) (Auto) 0.3 % (0.3-1.4) Nucleated RBC Relative Count (auto) 0.0 /100WBC Neutrophils # (Auto) 5.4 K/uL (2.0-7.4) Lymphocytes # (Auto) 1.1 K/uL (1.3-3.6) Monocytes # (Auto) 0.5 K/uL (0.3-1.0) Eosinophils # (Auto) 0.1 K/uL (0.0-0.5) Basophils # (Auto) 0.0 K/uL (0.0-0.1) Nucleated RBC Absolute Count (auto) 0.00 K/uL Glomerular Filtration Rate Calc > 60.0 Calcium Level 9.9 mg/dl (8.4-10.2) Total Bilirubin 0.4 mg/dl (0.2-1.3) Aspartate Amino Transf (AST/SGOT) 34 U/L (0-35) Alanine Aminotransferase (ALT/SGPT) 20 U/L (0-56) Alkaline Phosphatase 72 U/L (0-126) Troponin I < 0.012 ng/ml Total Protein 7.3 g/dl (6.3-8.2) Albumin 4.0 g/dl (3.5-5.0) EKG/Imaging EKG Interpretation 12 lead EKG: Rhythm: normal sinus rhythm Orick: normal QRS: normal ST segments: Patient has T-wave flattening in lead V3, V4 and V5. Imaging EXAMINATION: Chest 2 Views HISTORY: Respiratory distress. COMPARISON: Prior study of earlier today. FINDINGS: The lungs are hyperinflated but otherwise clear. No new focal consolidation. No pleural effusion or pneumothorax. Normal cardiomediastinal silhouette. Visualized osseous structures appear intact. IMPRESSION: Stable exam. No new or progressive findings in the chest. Report Dictated By: Severiano Henning MD at 06/19/2018 7:53 PM Report E-Signed By: Severiano Henning MD at 06/19/2018 7:57 PM ED Course/Re-evaluation ED Course Patient was admitted to an exam room, history and physical were obtained. Differential diagnoses were considered. On examination lungs are clear, heart is regular, abdomen soft nontender. Patient had no audible wheezes. Patient was tender to the left upper chest, between ribs 4 and 5. A CBC, CMP, troponin, EKG, chest x-ray were done. Labs were unchanged from this morning, x-ray showed no acute cardiopulmonary processes. EKG did show some flattening of V3, V4 and V5. I discussed the findings with patient. I believe that she is having a COPD exacerbation with costochondritis. Diagnosis was causing her pain. Patient was given the option to be admitted to go home. Patient states she would prefer to go home. We will go ahead and discharge patient home at this time. We will start her on prednisone, and give her a limited supply of pain medication to help with pain. She is follow-up with Dr. Soto's office on Sunday. Patient verbalized understanding and agreement with plan. Decision to Disposition Date: Jun 19, 2018 Decision to Disposition Time: 20:14 Depart Departure Latest Vital Signs Vital Signs Date Time Temp Pulse Resp B/P (MAP) Pulse Ox O2 Delivery O2 Flow Rate FiO2 06/19/18 19:10 92 20 06/19/18 19:10 97 Nasal Cannula 4.0 Impression: Primary Impression: COPD exacerbation Additional Impression: Costochondritis Condition: Improved Disposition: HOME OR SELF-CARE Referrals: SRINI SOTO DO (PCP) New Scripts Hydrocodone Bit/Acetaminophen (HYDROCODON-ACETAMINOPHEN 5-325) 1 Each Tablet 1 EACH PO Q4-6H PRN for PAIN, #6 TAB Prov: CRIS CHAU 06/19/18 Prednisone (PREDNISONE) 20 Mg Tablet 40 MG PO DAILY, #8 TAB Prov: CRIS CHAU 06/19/18 Patient Instructions: COPD (Chronic Obstructive Pulmonary Disease) (ED), Costochondritis (ED) Additional Instructions: Limit activity by pain. Increase fluid intake. Get plenty of rest. Follow up with someone in Dr. Soto's office on Sunday. Return to the ER if condition worsens. Take mediation as directed. Work on eating foods that are high in calories. I do worry that you have been using so much energy breathing that you have lost the weight. Problem Qualifiers CRIS CHAU Jun 19, 2018 18:51
[2018-06-19] MEDS ORDERED: methylPREDNIS SUCC 125 MG/2ML IVP ONE (19:05)
[2018-06-19] MEDS ORDERED: ALBUTEROL/IPRATROPIUM 3 ML NEB NEB ONE (19:05)
--- NOTE | 2018-06-19 19:05 | EKG ---
FACILITY: [facility] - [place] PATIENT NAME: PAWEL CRUMP : [id number] MR: [id number] V: [id number] EXAM DATE: ORDERING PHYSICIAN: CRIS CHAU TECHNOLOGIST: CHAVEZ Test Reason : CARDIAC Blood Pressure : / mmHG Vent. Rate : 100 BPM Atrial Rate : 100 BPM P-R Int : 118 ms QRS Dur : 076 ms QT Int : 344 ms P-R-T Axes : 072 090 071 degrees QTc Int : 443 ms Normal sinus rhythm Possible Left atrial enlargement Low voltage QRS Possible Anterolateral infarct , age undetermined Abnormal ECG When compared with ECG of 19-JUN-2018 08:08, Borderline criteria for Anterior infarct are now present Borderline criteria for Anterolateral infarct are now present T wave inversion more evident in Anterior leads Confirmed by SHANNAN POST ([id number]) on 06/20/2018 6:37:11 AM Referred By: Confirmed By:SHANNAN POST
[2018-06-19] MEDS ORDERED: LORazepam 2 MG/ML VIAL IVP ONE (19:10)
[2018-06-19 19:16] LABS: PLATELET COUNT, AUTOMATED 259 K/uL (150-450)
--- NOTE | 2018-06-19 20:02 | RADIOLOGY IMAGING REPORT ---
FACILITY: [facility] PATIENT NAME: Brunilda Guardado : 1960 MR: [id number] V: [id number] EXAM DATE: ORDERING PHYSICIAN: CRIS CHAU TECHNOLOGIST: Location: [facility] - [place], [place] Patient: Brunilda Guardado : 1960 Visit/Account:[id number] Date of Sevice: 06/19/2018 EXAMINATION: Chest 2 Views HISTORY: Respiratory distress. COMPARISON: Prior study of earlier today. FINDINGS: The lungs are hyperinflated but otherwise clear. No new focal consolidation. No pleural effusion or p neumothorax. Normal cardiomediastinal silhouette. Visualized osseous structures appear intact. IMPRESSION: Stable exam. No new or progressive findings in the chest. Report Dictated By: Severiano Henning MD at 06/19/2018 7:53 PM Report E-Signed By: Severiano Henning MD at 06/19/2018 7:57 PM WSN:[id number]
[2018-06-19] MEDS ORDERED: PRED20TA6 PO (20:19)
[2018-06-19] MEDS ORDERED: HYDR-385 PO (20:19)
[2018-06-19] MEDS ORDERED: ACET/HYDROC 5/325MG TH ER ONLY 2 TAB/BOTTLE PO ONE (20:20)
[2018-06-19] MEDS ORDERED: predniSONE 20 MG TAB PO ONE (20:20)
[2018-06-19 20:30] VITALS: BP 95/66
== END 2018-06-19 20:52 | disposition home or self-care (01) ==
LOC: ER 18:59
DX: J44.1 Chronic obstructive pulmonary disease with (acute) exacerbation (principal); M94.0 Chondrocostal junction syndrome [Tietze]; F17.210 Nicotine dependence, cigarettes, uncomplicated
CPT/HCPCS: 71046; 84484; 85025; 93005; 94640; 96374; 96375; 99284; J2060; J2930; J7512; J7620; 82040; 82247; 82310; 82374; 82435; 82565; 82947; 84075; 84132; 84155; 84295; 84450; 84460; 84520

== ENCOUNTER → 2018-06-19 | Outpatient (CLI) | payer OTHER ==
[2016-06-12 11:43] VITALS: BMI 16.5
[~2018-06-19] MED LIST changes: +ALBU2.5V36 INH; +CHOL200022 PO; -CHOL200085 PO; +LEVO-85 PO; +OXYGENHOME INH
== END ==
LOC: AMB 07:19
PROVIDERS: ATTEND Nurse Practitioner
DX: R07.9 Chest pain, unspecified (principal); F41.9 Anxiety disorder, unspecified
CPT/HCPCS: A0425; A0427

== ENCOUNTER 2018-07-14 23:55 | Emergency (ER) | payer OTHER ==
[2016-06-12 11:43] VITALS: Wt 40.8 kg
[~2018-07-14 23:55] MED LIST changes: -OXYC-865 PO
[2018-07-14 23:59] VITALS: BP 142/129
[2018-07-15] MEDS ORDERED: ONDANSETRON 4 MG ODT TABDP SL ONE (00:20)
[2018-07-15] MEDS ORDERED: IBUPROFEN 600 MG TAB PO ONE (00:20)
[2018-07-15] MEDS ORDERED: ACETAMINOPHEN 325 MG TAB PO ONE (00:20)
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
[2018-07-15] MEDS ORDERED: CYCL10TA29 PO (12:09)
[2018-07-15] MEDS ORDERED: OXYC-865 PO (12:09)
== END 2018-07-15 00:41 | disposition home or self-care (01) ==
LOC: ER 23:57
DX: M54.5 Low back pain (principal)
CPT/HCPCS: 99281

== ENCOUNTER → 2018-07-14 | Outpatient (CLI) | payer OTHER ==
[2016-06-12 11:43] VITALS: BMI 16.5
[~2018-07-14] MED LIST changes: +OXYC-865 PO
== END ==
LOC: AMB 23:09
PROVIDERS: ATTEND Nurse Practitioner
DX: M54.9 Dorsalgia, unspecified (principal); R06.00 Dyspnea, unspecified; R09.02 Hypoxemia; R45.1 Restlessness and agitation; F10.120 Alcohol abuse with intoxication, uncomplicated
CPT/HCPCS: A0425; A0427

== ENCOUNTER 2018-07-15 09:57 | Emergency (ER) | payer OTHER ==
[2016-06-12 11:43] VITALS: Wt 40.8 kg
--- NOTE | 2018-07-15 10:05 | ER Report ---
History and Physical Time Seen By MD: 10:04 HPI/ROS CHIEF COMPLAINT: fall, back and neck pain. HISTORY OF PRESENT ILLNESS: This is a 57 year old female. She was here yesterday after a fall. Fell back, landing on her bottom. Pain in lower back and neck. Left without further care. See Dr. Langley's note from yesterday. Pain worsening, so returned for re-evaluation. Pain in neck and low back with any movement. She has no numbness or weakness. No loss of bowel or bladder control. Allergies: Coded Allergies: iodine (Unverified Allergy, Intermediate, HIVES,, 07/15/18) morphine (Unverified Allergy, Mild, ITCHING, 07/15/18) Uncoded Allergies: SEAFOOD (Allergy, Mild, 06/27/07) Home Meds Active Scripts Cyclobenzaprine Hcl (CYCLOBENZAPRINE HCL) 10 Mg Tablet, 10 MG PO TID, #15 TAB 0 Refills Prov:SUDHIR MCCLENDON MD 07/15/18 Oxycodone Hcl/Acetaminophen (PERCOCET 5-325 MG TABLET) 1 Each Tablet, 1 EACH PO Q4H PRN for PAIN, #15 TAB 0 Refills Prov:SUDHIR MCCLENDON MD 07/15/18 Reported Medications Oxygen (OXYGEN) Inha, 2 L INH HS, L 06/19/18 Tiotropium Slater 2.5 MCG/ACT (Spiriva Respimat 2.5 MCG/ACT) 4 Gm Mist.inhal, 1 PUFF PO QDAY 07/23/17 Albuterol Sulfate (Proventil Hfa) 6.7 Gm Aer.w.adap, 1 PUFF INH PRN, 0 Refills 04/22/11 Discontinued Scripts Hydrocodone Bit/Acetaminophen (HYDROCODON-ACETAMINOPHEN 5-325) 1 Each Tablet, 1 EACH PO Q4-6H PRN for PAIN, #6 TAB Prov:CRIS CHAU 06/19/18 Prednisone (PREDNISONE) 20 Mg Tablet, 40 MG PO DAILY, #8 TAB Prov:CRIS CHAU 06/19/18 Albuterol Sulfate 0.083% (ALBUTEROL SULFATE 0.083%) 2.5 Mg/3 Ml Vial.neb, 2.5 MG INH QID PRN for difficulty breathing, #25 INH Prov:JANEL STACK DO 05/05/18 Reviewed Nurses Notes: Yes Hx Smoking: Yes Smoking Status: Heavy Tobacco Smoker Exposure to Second Hand Smoke?: Yes Hx Substance Use Disorder: No Hx Alcohol Use: Yes Constitutional Vital Sign - Last 24 Hours 07/15/18 07/15/18 07/15/18 07/15/18 10:01 10:06 10:15 10:35 Temp 99.4 Pulse 94 98 Resp 14 B/P (MAP) 144/90 144/90 (108) Pulse Ox 92 90 O2 Delivery Room Air O2 Flow Rate 1.0 07/15/18 07/15/18 07/15/18 07/15/18 10:45 10:51 11:00 11:15 Pulse 95 86 88 B/P (MAP) 148/96 (113) 118/84 (95) Pulse Ox 93 93 93 07/15/18 07/15/18 07/15/18 07/15/18 11:30 11:45 12:00 12:15 Pulse 79 85 86 82 B/P (MAP) 118/87 (97) Pulse Ox 94 93 92 92 07/15/18 12:30 Pulse 79 B/P (MAP) 92/62 (72) Pulse Ox 91 Physical Exam General Appearance: Alert, distress due to pain. Eyes: Pupils equal and round, no injection. ENT: Normal oral mucosa. Moist mucous membranes. Neck: Neck with diffuse pain in the paraspinous and trapezius muscles, but not midline. Respiratory: Lungs clear, not short of breath, but breathing motion hurts low back. Cardiac: regular rate and rhythm Gastro: Soft, non-tender. Musculoskeletal: Tender throughout the low back and neck area. No pain in the hips or extremities. Skin: No rashes or lesions. DIFFERENTIAL DIAGNOSIS: After history and physical exam differential diagnosis was considered for pain in back and neck after fall. Medical Decision Making EKG/Imaging Imaging Study: PELVIS Indication: Fall Comparison study: None available Findings: Single supine AP view the pelvis demonstrates no evidence of acute bony abnormality. The iliac crests are unremarkable. There is no evidence of abnormality of the acetabulum or pubic rami. The sacroiliac joints and hip joints are unremarkable. There is no evidence of abnormality of the proximal femora. The visualized bowel gas pattern and soft tissues are unremarkable. IMPRESSION: Unremarkable exam Report Dictated By: Cecilio Morrow at 07/15/2018 11:33 AM EXAMINATION: CT Cervical spine without intravenous contrast CT Thoracic spine without intravenous contrast CT Lumbar spine without intravenous contrast HISTORY: Neck pain. Back pain. Trauma. COMPARISON: Chest CT dated 06/19/2018. TECHNIQUE: Noncontrast axial CT of the cervical, thoracic, and lumbar spine with sagittal and coronal reformats. One of the following dose optimization techniques was utilized in the performa nce of this exam: Automated exposure control; adjustment of the mA and/or kV according to the patient's size; or use of an iterative reconstruction technique. Specific details can be referenced in the facility's radiology CT exam operational policy. FINDINGS: CERVICAL SPINE: Alignment: 3 mm of anterior listhesis of C5 over C6. Cranio-cervical junction: Mild degenerative changes in the atlantodental joint. Otherwise negative. Vertebral bodies: Negative. Posterior elements: Facet hypertrophy on the left at C5-C6. Hardware: None. Disc Spaces: Multilevel degenerative disc disease. Soft tissues: Negative. THORACIC SPINE: Alignment: Mild convex rightward curvature. Vertebral bodies: Negative. Posterior elements: Negative. Hardware: None. Disc Spaces: Mild multilevel degenerative disc disease. Soft tissues: Negative. Visualized lungs / abdomen: Stable small pulmonary nodules compared with 06/19/2018. Emphysema. LUMBAR SPINE: Alignment: Mild convex rightward curvature. Vertebral bodies: Buckling of the anterior cortex of the S3 vertebral body Posterior elements: Multilevel facet hypertrophy, most severe at L4-L5 and L5- S1. Hardware: None. Disc Spaces: Mild multilevel degenerative disc disease. Soft tissues: Negative. Visualized retroperitoneal / abdominal structures: Negative. IMPRESSION: 1. Age-indeterminate fracture of the anterior S3 vertebral body. 2. Otherwise no acute osseous abnormality of the cervical, thoracic, or lumbar spine. 3. Multilevel degenerative disc disease and facet hypertrophy. Report Dictated By: Lobo Lima MD at 07/15/2018 11:04 AM ED Course/Re-evaluation Clinical Indication for ER IV: Hydration, IV Access ED Course Imaging done. There appears to be an age indeterminant S3 sacral fracture which appears to be some buckling in this area. Even the fact that she was asymptomatic prior to her fall now with the pain that I have to expect that this was a new fracture. The rest of her cervical lumbar and thoracic spine imaging on CT scan was negative. Degenerative changes present. Still without any signs of bowel or bladder dysfunction or neurologic changes, and Cervidil management with pain medicine and muscle relaxers. She will follow-up with her primary care provider Decision to Disposition Date: Jul 15, 2018 Decision to Disposition Time: 12:06 Depart Departure Latest Vital Signs Vital Signs Date Time Temp Pulse Resp B/P (MAP) Pulse Ox O2 Delivery O2 Flow Rate FiO2 07/15/18 12:30 79 92/62 (72) 91 07/15/18 10:35 1.0 07/15/18 10:01 99.4 14 Room Air Impression: Primary Impression: Sacral fracture, closed Condition: Improved Disposition: HOME OR SELF-CARE Referrals: SRINI SOTO DO (PCP) New Scripts Cyclobenzaprine Hcl (CYCLOBENZAPRINE HCL) 10 Mg Tablet 10 MG PO TID, #15 TAB 0 Refills Prov: SUDHIR MCCLENDON MD 07/15/18 Oxycodone Hcl/Acetaminophen (PERCOCET 5-325 MG TABLET) 1 Each Tablet 1 EACH PO Q4H PRN for PAIN, #15 TAB 0 Refills Prov: SUDHIR MCCLENDON MD 07/15/18 Patient Instructions: Sacral Fracture (ED) Additional Instructions: You have a fracture in your sacrum, causing your low back pain. This will cause pain and muscle tightness, but should not need surgery. Follow-up with primary care for further treatment options for pain associated with this fracture. Off work this week until you see your primary care provider. Call today to make an appointment. Take Percocet 5/325, one every 6 hours as needed for pain. Take Flexeril 10mg, one every 8 hours as needed for pain and muscle spasms. Take Ibuprofen 200mg over the counter tablets, take 3 tablets every 8 hours as needed for pain. Problem Qualifiers Primary Impression: Sacral fracture, closed Encounter type: initial encounter Zone of sacrum fracture: unspecified portion of sacrum Qualified Codes: S32.10XA - Unspecified fracture of sacrum, initial encounter for closed fracture SUDHIR MCCLENDON MD Jul 15, 2018 10:05
[2018-07-15] MEDS ORDERED: HYDROMORPHONE HCL 1 MG/ML SYRINGE IVP ONE ×2 (10:15→11:40)
--- NOTE | 2018-07-15 11:29 | RADIOLOGY IMAGING REPORT ---
[place] [facility] [place] Brunilda Guardado : 1960 MR: [id number] V: [id number] EXAM DATE: ORDERING PHYSICIAN: SUDHIR MCCLENDON TECHNOLOGIST: Location: [facility] Patient: Brunilda Guardado : 1960 Visit/Account:[id number] Date of Sevice: 07/15/2018 EXAMINATION: CT Cervical spine without intravenous contrast CT Thoracic spine without intravenous contrast CT Lumbar spine without intravenous contrast HISTORY: Neck pain. Back pain. Trauma. COMPARISON: Chest CT dated 06/19/2018. TECHNIQUE: Noncontrast axial CT of the cervical, thoracic, and lumbar spine with sagittal and coronal reformats. One of the following dose optimization techniques was utilized in the performance of this exam: Autom ated exposure control; adjustment of the mA and/or kV according to the patient's size; or use of an i terative reconstruction technique. Specific details can be referenced in the facility's radiology C T exam operational policy. FINDINGS: CERVICAL SPINE: Alignment: 3 mm of anterior listhesis of C5 over C6. Cranio-cervical junction: Mild degenerative changes in the atlantodental joint. Otherwise negative. Vertebral bodies: Negative. Posterior elements: Facet hypertrophy on the left at C5-C6. Hardware: None. Disc Spaces: Multilevel degenerative disc disease. Soft tissues: Negative. THORACIC SPINE: Alignment: Mild convex rightward curvature. Vertebral bodies: Negative. Posterior elements: Negative. Hardware: None. Disc Spaces: Mild multilevel degenerative disc disease. Soft tissues: Negative. Visualized lungs / abdomen: Stable small pulmonary nodules compared with 06/19/2018. Emphysema. LUMBAR SPINE: Alignment: Mild convex rightward curvature. Vertebral bodies: Buckling of the anterior cortex of the S3 vertebral body Posterior elements: Multilevel facet hypertrophy, most severe at L4-L5 and L5-S1. Hardware: None. Disc Spaces: Mild multilevel degenerative disc disease. Soft tissues: Negative. Visualized retroperitoneal / abdominal structures: Negative. IMPRESSION: 1. Age-indeterminate fracture of the anterior S3 vertebral body. 2. Otherwise no acute osseous abnormality of the cervical, thoracic, or lumbar spine. 3. Multilevel degenerative disc disease and facet hypertrophy. Report Dictated By: Lobo Lima MD at 07/15/2018 11:04 AM Report E-Signed By: Lobo Lima MD at 07/15/2018 11:22 AM WSN:[id number]
--- NOTE | 2018-07-15 11:29 | RADIOLOGY IMAGING REPORT ---
FACILITY: [facility] - [place] PATIENT NAME: Brunilda Guardado : 1960 MR: [id number] V: [id number] EXAM DATE: ORDERING PHYSICIAN: SUDHIR MCLCENDON TECHNOLOGIST: Location: [facility] Patient: Brunilda Guardado : 1960 Visit/Account:[id number] Date of Sevice: 07/15/2018 EXAMINATION: CT Cervical spine without intravenous contrast CT Thoracic spine without intravenous contrast CT Lumbar spine without intravenous contrast HISTORY: Neck pain. Back pain. Trauma. COMPARISON: Chest CT dated 06/19/2018. TECHNIQUE: Noncontrast axial CT of the cervical, thoracic, and lumbar spine with sagittal and coronal reformats. One of the following dose optimization techniques was utilized in the performance of this exam: Autom ated exposure control; adjustment of the mA and/or kV according to the patient's size; or use of an i terative reconstruction technique. Specific details can be referenced in the facility's radiology C T exam operational policy. FINDINGS: CERVICAL SPINE: Alignment: 3 mm of anterior listhesis of C5 over C6. Cranio-cervical junction: Mild degenerative changes in the atlantodental joint. Otherwise negative. Vertebral bodies: Negative. Posterior elements: Facet hypertrophy on the left at C5-C6. Hardware: None. Disc Spaces: Multilevel degenerative disc disease. Soft tissues: Negative. THORACIC SPINE: Alignment: Mild convex rightward curvature. Vertebral bodies: Negative. Posterior elements: Negative. Hardware: None. Disc Spaces: Mild multilevel degenerative disc disease. Soft tissues: Negative. Visualized lungs / abdomen: Stable small pulmonary nodules compared with 06/19/2018. Emphysema. LUMBAR SPINE: Alignment: Mild convex rightward curvature. Vertebral bodies: Buckling of the anterior cortex of the S3 vertebral body Posterior elements: Multilevel facet hypertrophy, most severe at L4-L5 and L5-S1. Hardware: None. Disc Spaces: Mild multilevel degenerative disc disease. Soft tissues: Negative. Visualized retroperitoneal / abdominal structures: Negative. IMPRESSION: 1. Age-indeterminate fracture of the anterior S3 vertebral body. 2. Otherwise no acute osseous abnormality of the cervical, thoracic, or lumbar spine. 3. Multilevel degenerative disc disease and facet hypertrophy. Report Dictated By: Lobo Lima MD at 07/15/2018 11:04 AM Report E-Signed By: Lobo Lima MD at 07/15/2018 11:22 AM WSN:[id number]
--- NOTE | 2018-07-15 11:35 | RADIOLOGY IMAGING REPORT ---
FACILITY: [facility] - [place] PATIENT NAME: Brunilda Guardado : 1960 MR: [id number] V: [id number] EXAM DATE: ORDERING PHYSICIAN: SUDHIR MCCLENDON TECHNOLOGIST: Location: [facility] [place] Patient: Brunilda Guardado : 1960 Visit/Account:[id number] Date of Sevice: 07/15/2018 EXAMINATION: CT Cervical spine without intravenous contrast CT Thoracic spine without intravenous contrast CT Lumbar spine without intravenous contrast HISTORY: Neck pain. Back pain. Trauma. COMPARISON: Chest CT dated 06/19/2018. TECHNIQUE: Noncontrast axial CT of the cervical, thoracic, and lumbar spine with sagittal and coronal reformats. One of the following dose optimization techniques was utilized in the performance of this exam: Autom ated exposure control; adjustment of the mA and/or kV according to the patient's size; or use of an i terative reconstruction technique. Specific details can be referenced in the facility's radiology C T exam operational policy. FINDINGS: CERVICAL SPINE: Alignment: 3 mm of anterior listhesis of C5 over C6. Cranio-cervical junction: Mild degenerative changes in the atlantodental joint. Otherwise negative. Vertebral bodies: Negative. Posterior elements: Facet hypertrophy on the left at C5-C6. Hardware: None. Disc Spaces: Multilevel degenerative disc disease. Soft tissues: Negative. THORACIC SPINE: Alignment: Mild convex rightward curvature. Vertebral bodies: Negative. Posterior elements: Negative. Hardware: None. Disc Spaces: Mild multilevel degenerative disc disease. Soft tissues: Negative. Visualized lungs / abdomen: Stable small pulmonary nodules compared with 06/19/2018. Emphysema. LUMBAR SPINE: Alignment: Mild convex rightward curvature. Vertebral bodies: Buckling of the anterior cortex of the S3 vertebral body Posterior elements: Multilevel facet hypertrophy, most severe at L4-L5 and L5-S1. Hardware: None. Disc Spaces: Mild multilevel degenerative disc disease. Soft tissues: Negative. Visualized retroperitoneal / abdominal structures: Negative. IMPRESSION: 1. Age-indeterminate fracture of the anterior S3 vertebral body. 2. Otherwise no acute osseous abnormality of the cervical, thoracic, or lumbar spine. 3. Multilevel degenerative disc disease and facet hypertrophy. Report Dictated By: Lobo Lima MD at 07/15/2018 11:04 AM Report E-Signed By: Lobo Lima MD at 07/15/2018 11:22 AM WSN:[id number]
--- NOTE | 2018-07-15 11:38 | RADIOLOGY IMAGING REPORT ---
FACILITY: [facility] PATIENT NAME: Brunilda Guardado : 1960 MR: [id number] V: [id number] EXAM DATE: ORDERING PHYSICIAN: SUDHIR MCCLENDON TECHNOLOGIST: Location: [facility] Patient: Brunilda Guardado : 1960 Visit/Account:[id number] Date of Sevice: 07/15/2018 Study: PELVIS Indication: Fall Comparison study: None available Findings: Single supine AP view the pelvis demonstrates no evidence of acute bony abnormality. The il iac crests are unremarkable. There is no evidence of abnormality of the acetabulum or pubic rami. The sacroiliac joints and hip joints are unremarkable. There is no evidence of abnormality of the pro ximal femora. The visualized bowel gas pattern and soft tissues are unremarkable. IMPRESSION: Unremarkable exam Report Dictated By: Cecilio Morrow at 07/15/2018 11:33 AM Report E-Signed By: Cecilio Morrow at 07/15/2018 11:34 AM WSN:[id number]
[2018-07-15] MEDS ORDERED: ORPHENADRINE 60MG/2ML INJ IVP ONE (11:40)
[2018-07-15] MEDS ORDERED: OXYC-865 PO (12:09)
[2018-07-15] MEDS ORDERED: CYCL10TA29 PO (12:09)
[2018-07-15 12:30] VITALS: BP 92/62
== END 2018-07-15 12:50 | disposition home or self-care (01) ==
LOC: ER 10:18
DX: S32.10XA Unspecified fracture of sacrum, initial encounter for closed fracture (principal)
CPT/HCPCS: 72125; 72128; 72131; 72170; 96374; 96375; 96376; 99284; J1170; J2360